=== PATIENT | male | born 1975 | race Caucasian/White ===

== ENCOUNTER 2016-06-02 19:05 | Emergency (ER) | payer OTHER ==
[2016-06-02 19:12] VITALS: BP 129/82; PULSE 68; RESP 16; TEMP 98.2
--- NOTE | 2016-06-02 19:54 | ED ---
General Adult HPI - General Chief complaint: Extremity Injury, Upper Stated complaint: shoulder pain Time Seen by Provider: 06/02/16 19:42 Source: patient, RN notes reviewed Mode of arrival: ambulatory Limitations: no limitations - History of Present Illness Initial comments: This is a 40-year-old male who presents with right shoulder pain that started around 2 PM today. Patient states he has some chronic posterior right shoulder pain and said he takes meloxicam at home. Patient states the pain he has today is more to the lateral aspect of the right shoulder. Patient states this started after he lifted up a heavy bag with his right upper extremity fully extended. Patient states he's been having pain with flexion and abduction of the right upper extremity ever since. Patient denies any numbness/tingling/ weakness or radicular pain of the right upper extremity. Patient denies any neck pain. Patient denies any fall or trauma to the right shoulder. Patient denies any recent fever, chills, shortness breath, chest pain, abdominal pain, nausea/vomiting/diarrhea, back pain, hematuria, headache, or visual changes, or any other complaints. - Related Data Allergies Allergy/AdvReac Type Severity Reaction Status Date / Time No Known Allergies Allergy Verified 06/02/16 19:12 Review of Systems ROS Statement: Those systems with pertinent positive or pertinent negative responses have been documented in the HPI. ROS Other: All systems not noted in ROS Statement are negative. Past Medical History Past Medical History: No Reported History History of Any Multi-Drug Resistant Organisms: None Reported Past Surgical History: Hernia Repair, Orthopedic Surgery Additional Past Surgical History / Comment(s): right ankle Past Psychological History: PTSD Smoking Status: Never smoker Past Alcohol Use History: None Reported Past Drug Use History: None Reported General Exam - General Exam Comments Initial Comments: General: The patient is awake and alert, in no distress, and does not appear acutely ill. Neck: The neck is supple, there is no tenderness or JVD. Cardiovascular: There is a regular rate and rhythm. No murmur, rub or gallop is appreciated. Respiratory: Lungs are clear to auscultation, respirations are non-labored, breath sounds are equal. No wheezes, stridor, rales, or rhonchi. Musculoskeletal: There is tenderness to palpation over the lateral aspect of the right shoulder. Pain is exacerbated with empty can test and with lift off test. Patient has limited range of motion with forward flexion and abduction, patient's range of motion improves with passive range of motion. Patient has strength 5/5 and sensation intact. Radial pulses are 2+ bilaterally. 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 Neurological: A&O x 3. CN II-XII intact, There are no obvious motor or sensory deficits. Coordination appears grossly intact. Speech is normal. Skin: Skin is warm and dry and no rashes or lesions are noted. Psychiatric: Normal mood and affect. Limitations: no limitations Course Vital Signs 06/02/16 19:09 Temperature 98.2 F Pulse Rate 68 Respiratory 16 Rate Blood Pressure 129/82 O2 Sat by Pulse 97 Oximetry Medical Decision Making - Medical Decision Making This is a 40-year-old male presents with right shoulder pain that started at 2 PM today. On physical exam patient has no neurologic deficits. There is tenderness to palpation over the lateral aspect of the right shoulder. Pain is exacerbated with empty can test and with lift off test, but patient has full strength. Patient has limited range of motion with forward flexion and abduction, patient's range of motion improves with passive range of motion. Patient has strength 5/5 and sensation intact. Radial pulses are 2+ bilaterally. An x-ray of the right shoulder was done and reviewed showing: There is no acute fracture or dislocation. Reported the Dr. Esquivel. I discussed the results with patient. I discussed range of motion exercises periodically throughout the day. Discussed continuation of the patient's meloxicam and Tylenol. I discussed rest and ice to the right upper extremity. I discussed the patient should avoid lifting anything heavy until pain is improved. I discussed return parameters.Discussed that patient should follow up with PCP in one to 2 days or return to the [facility] for any worsening symptoms or for any further concerns. Patient and were receptive to this plan and patient will be discharged home. Disposition Clinical Impression: Sprain of shoulder, right Disposition: HOME SELF-CARE Condition: Good Instructions: Shoulder Sprain (ED) Additional Instructions: Please rest, ice and use Tylenol and your meloxicam for pain. Please do not lift anything that causes pain in the shoulder. Please perform range of motion exercises to the shoulder periodically throughout the day. Please follow-up with her primary care physician in one to 2 days or return to the [facility] for any worsening symptoms or for any further concerns. Referrals: Conor Garza DO [Primary Care Provider] - 1-2 days Time of Disposition: 20:18
--- NOTE | 2016-06-02 20:17 | XR ---
EXAMINATION TYPE: XR shoulder complete RT DATE OF EXAM: 06/02/2016 8:03 PM CLINICAL HISTORY: pain COMPARISON: NONE TECHNIQUE: Frontal and lateral images of the right humerus are obtained. FINDINGS: There is no acute fracture/dislocation evident. The joint spaces appear within normal limi ts. The overlying soft tissue appears unremarkable. IMPRESSION: There is no acute fracture or dislocation.ICD 10 NO FRACTURE, INITIAL EVALUATION
== END 2016-06-02 20:24 | disposition home or self-care (01) ==
LOC: EC 19:05
DX: S43.401A Unspecified sprain of right shoulder joint, initial encounter (principal); X50.0XXA Overexertion from strenuous movement or load, initial encounter
CPT/HCPCS: 99283

== ENCOUNTER 2016-07-30 00:08 | Emergency (ER) | payer OTHER ==
[2016-07-30 00:17] VITALS: TEMP 97.4
[2016-07-30] MEDS ORDERED: SODIUM CHLORIDE 0.9% 1,000 ML IV ONE (00:53)
--- NOTE | 2016-07-30 00:55 | ED ---
General Adult HPI - General Chief complaint: Abdominal Pain Stated complaint: back pain Time Seen by Provider: 07/30/16 00:19 Source: patient, RN notes reviewed Mode of arrival: ambulatory Limitations: no limitations - History of Present Illness Initial comments: Patient is a 40-year-old male to the emergency room for evaluation of flank pain. Patient states he began having right-sided flank pain that radiated to the left side of his flank area around 10 PM this evening. Patient states he urinated the pain worsened. Patient states he took a shower and took Tylenol and the pain appeared to improve slightly. Patient states he still having continuing pain and can't get comfortable. Patient does state he has a history of kidney stones. Patient states this does feel similar. Patient denies any pain or burning during urination. Patient denies any current nausea or vomiting. Patient denies fevers or chills. Patient denies headache or dizziness. Patient denies chest pain or shortness of breath. Patient does state he had abdominal pain earlier this evening when he was expressing the flank pain but it has subsided since he has been here. Patient states she has a history of inguinal hernia repair. Patient denies any other history of abdominal surgeries. - Related Data Home Medications Medication Instructions Recorded Confirmed Naproxen [Naprosyn] 500 mg PO Q12HR 07/30/16 07/30/16 Previous Rx's Medication Instructions Recorded traMADol HCl [Ultram] 50 mg PO Q4H PRN #15 tab 07/30/16 Allergies Allergy/AdvReac Type Severity Reaction Status Date / Time No Known Allergies Allergy Verified 07/30/16 00:16 Review of Systems ROS Statement: Those systems with pertinent positive or pertinent negative responses have been documented in the HPI. ROS Other: All systems not noted in ROS Statement are negative. Past Medical History Past Medical History: No Reported History Additional Past Medical History / Comment(s): kidney stones History of Any Multi-Drug Resistant Organisms: None Reported Past Surgical History: Hernia Repair, Orthopedic Surgery Additional Past Surgical History / Comment(s): right ankle Past Psychological History: PTSD Smoking Status: Never smoker Past Alcohol Use History: None Reported Past Drug Use History: None Reported General Exam - General Exam Comments Initial Comments: Sitting in exam room, no acute distress. Limitations: no limitations General appearance: alert, in no apparent distress Head exam: Present: atraumatic, normocephalic, normal inspection Eye exam: Present: normal appearance ENT exam: Present: normal exam Neck exam: Present: normal inspection Respiratory exam: Present: normal lung sounds bilaterally. Absent: respiratory distress Cardiovascular Exam: Present: regular rate, normal rhythm, normal heart sounds GI/Abdominal exam: Present: soft, normal bowel sounds. Absent: distended, tenderness, guarding, rebound, rigid Extremities exam: Present: normal inspection Back exam: Present: CVA tenderness (R), CVA tenderness (L) Neurological exam: Present: alert, oriented X3, CN II-XII intact, normal gait Psychiatric exam: Present: normal affect, normal mood Skin exam: Present: warm, dry, intact, normal color. Absent: rash Course Vital Signs 07/30/16 07/30/16 00:14 03:21 Temperature 97.4 F L Pulse Rate 89 65 Respiratory 18 16 Rate Blood Pressure 109/82 116/55 O2 Sat by Pulse 100 98 Oximetry Medical Decision Making - Medical Decision Making Patient is a 40-year-old male presents to the emergency room for evaluation of flank pain. CT evidence for right renal calculus. Patient declined any pain medications while he was here. Advised patient to follow-up with his primary care provider. Patient sent home with pain medications as needed if passing a stone. Patient states he understands everything else discussed with him. Return parameters discussed. Case discussed Dr. Raymond. - Lab Data Result diagrams: 07/30/16 01:15 07/30/16 01:15 Lab Results 07/30/16 07/30/16 07/30/16 Range/Units 01:15 01:15 01:15 WBC 12.8 H (3.8-10.6) k/uL RBC 5.38 (4.30-5.90) m/uL Hgb 16.4 (13.0-17.5) gm/dL Hct 49.2 (39.0-53.0) % MCV 91.4 (80.0-100.0) fL MCH 30.5 (25.0-35.0) pg MCHC 33.4 (31.0-37.0) g/dL RDW 13.1 (11.5-15.5) % Plt Count 389 (150-450) k/uL Neutrophils % 69 % Lymphocytes % 23 % Monocytes % 4 % Eosinophils % 2 % Basophils % 1 % Neutrophils # 8.9 H (1.3-7.7) k/uL Lymphocytes # 2.9 (1.0-4.8) k/uL Monocytes # 0.6 (0-1.0) k/uL Eosinophils # 0.3 (0-0.7) k/uL Basophils # 0.1 (0-0.2) k/uL Sodium 142 (137-145) mmol/L Potassium 4.1 (3.5-5.1) mmol/L Chloride 106 (98-107) mmol/L Carbon Dioxide 24 (22-30) mmol/L Anion Gap 12 mmol/L BUN 11 (9-20) mg/dL Creatinine 0.90 (0.66-1.25) mg/dL Est GFR (MDRD) Af Amer >60 (>60 ml/min/1.73 sqM) Est GFR (MDRD) Non-Af >60 (>60 ml/min/1.73 sqM) Glucose 118 H (74-99) mg/dL Calcium 9.5 (8.4-10.2) mg/dL Total Bilirubin 0.5 (0.2-1.3) mg/dL AST 25 (17-59) U/L ALT 32 (21-72) U/L Alkaline Phosphatase 75 (38-126) U/L Total Protein 7.7 (6.3-8.2) g/dL Albumin 4.5 (3.5-5.0) g/dL Amylase 67 (30-110) U/L Lipase 140 (23-300) U/L Urine Color Yellow Urine Appearance Clear (Clear) Urine pH 5.5 (5.0-8.0) Ur Specific [place] 1.022 (1.001-1.035) Urine Protein Trace H (Negative) Urine Glucose (UA) Negative (Negative) Urine Ketones Negative (Negative) Urine Blood Negative (Negative) Urine Nitrite Negative (Negative) Urine Bilirubin Negative (Negative) Urine Urobilinogen <2.0 (<2.0) mg/dL Ur Leukocyte Esterase Negative (Negative) - Radiology Data Radiology results: report reviewed, image reviewed Disposition Clinical Impression: Renal calculus, right, Flank pain Disposition: HOME SELF-CARE Condition: Good Instructions: Kidney Stones (ED) Additional Instructions: Drink plenty of water. Take Tylenol or Motrin for pain. Take Ultram as needed for severe pain. Please follow up with primary care provider in 1-2 days. If any new symptom arises or symptoms worsen, return to ER as soon as possible. Prescriptions: traMADol HCl [Ultram] 50 mg PO Q4H PRN #15 tab PRN Reason: Pain Referrals: Conor Garza DO [Primary Care Provider] - 1-2 days Time of Disposition: 03:13
[2016-07-30 01:24] LABS: Appearance,Urine Clear (Clear); Basophils # (A) 0.1 k/uL (0-0.2); Basophils % (A) 1 %; Bilirubin,Urine Negative (Negative); CH 31.4; CHCM 34.6; Eosinophils # (A) 0.3 k/uL (0-0.7); Eosinophils % (A) 2 %; Glucose,Urine (UA) Negative (Negative); HCT 49.2 % (39.0-53.0); HDW 2.82; HGB 16.4 gm/dL (13.0-17.5); Ketones,Urine Negative (Negative); Leukocyte Esterase,Urine Negative (Negative); Luc # (Auto) 0.13; Luc % (Auto) 1; Lymphocytes # (A) 2.9 k/uL (1.0-4.8); Lymphocytes % (A) 23 %; MCH 30.5 pg (25.0-35.0); MCHC 33.4 g/dL (31.0-37.0); MCV 91.4 fL (80.0-100.0); Mean Platelet Volume 6.6; Monocytes # (A) 0.6 k/uL (0-1.0); Monocytes % (A) 4 %; Neutrophils # (A) 8.9 k/uL (1.3-7.7); Neutrophils % (A) 69 %; Nitrite,Urine Negative (Negative); PH, Urine 5.5 (5.0-8.0); Protein,Urine Trace (Negative); RBC 5.38 m/uL (4.30-5.90); RDW 13.1 % (11.5-15.5); Specific Gravity,Urine 1.022 (1.001-1.035); UA Billing (MACRO vs. MICRO) CHEM; Urobilinogen,Urine <2.0 mg/dL (<2.0); WBC 12.8 k/uL (3.8-10.6); WBC (Perox) 12.06
[2016-07-30 01:33] LABS: Amylase 67 U/L (30-110); Anion Gap 12 mmol/L; Calcium 9.5 mg/dL (8.4-10.2); Carbon Dioxide 24 mmol/L (22-30); Chloride 106 mmol/L (98-107); Glucose 118 mg/dL (74-99); Non-African American GFR(MDRD) >60 (>60 ml/min/1.73 sqM); Sodium 142 mmol/L (137-145); Total Bilirubin 0.5 mg/dL (0.2-1.3); Total Protein 7.7 g/dL (6.3-8.2)
[2016-07-30 01:34] LABS: ALT 32 U/L (21-72); AST 25 U/L (17-59); Alkaline Phosphatase 75 U/L (38-126); Blood Urea Nitrogen 11 mg/dL (9-20); Potassium 4.1 mmol/L (3.5-5.1)
[2016-07-30] MEDS: RX INFO: IV CONTRAST WAS GIVEN 1 EACH MISC MISCELLANE PRN ×2 (02:01→03:08)
--- NOTE | 2016-07-30 02:55 | CT ---
EXAM: CT Abdomen and Pelvis With Intravenous Contrast CLINICAL HISTORY: Reason: Pain Hx. of inguinal hernia repair. Pt. c/o right flank pain TECHNIQUE: Axial computed tomography images of the abdomen and pelvis with intravenous contrast. CTDI is 17 mGy and DLP is 1500 mGy-cm This CT exam was performed using one or more of the following dose reduction techniques: automated exposure control, adjustment of the mA and/or kV according to patient size, and/or use of iterative reconstruction technique. COMPARISON: No relevant prior studies available. FINDINGS: Lower thorax: No acute findings. ABDOMEN: Liver: Unremarkable. No mass. Gallbladder and bile ducts: Unremarkable. No calcified stones. No ductal dilation. Pancreas: Unremarkable. No mass. No ductal dilation. Spleen: Unremarkable. No splenomegaly. Adrenals: Unremarkable. No mass. Kidneys and ureters: Small nonobstructing right renal calculi. No hydronephrosis or obstructing calculus. Stomach and bowel: Unremarkable. No obstruction. No mucosal thickening. Appendix: Normal appendix. PELVIS: Bladder: Unremarkable. No mass. Reproductive: Unremarkable as visualized. ABDOMEN and PELVIS: Intraperitoneal space: Unremarkable. No free air. No significant fluid collection. Bones/joints: No acute fracture. No dislocation. Soft tissues: Small fat-containing right inguinal hernia with appearance. Likely status post repair. Vasculature: Unremarkable. No abdominal aortic aneurysm. Lymph nodes: Unremarkable. No enlarged lymph nodes. IMPRESSION: 1. No acute findings. 2. Normal appendix. 3. Small nonobstructing right renal calculi. No hydronephrosis or obstructing calculus
[2016-07-30 03:22] VITALS: BP 116/55; PULSE 65; RESP 16
== END 2016-07-30 03:23 | disposition home or self-care (01) ==
LOC: EC 00:08
DX: N20.0 Calculus of kidney (principal); Z79.1 Long term (current) use of non-steroidal anti-inflammatories (NSAID); Z98.890 Other specified postprocedural states
CPT/HCPCS: 36415; 80053; 82150; 83690; 85025; 81003; 74177; 99284; 96360; Q9967

== ENCOUNTER 2016-08-22 17:41 | Emergency (ER) | payer OTHER ==
[2016-08-22] MEDS ORDERED: SODIUM CHLORIDE 0.9% 1,000 ML IV STA (17:54)
[2016-08-22] MEDS ORDERED: ONDANSETRON 4 MG/2 ML VIAL IVP STA (17:54)
[2016-08-22] MEDS ORDERED: HYDROmorphone 1 MG/ML 1 ML SYRINGE IVP STA (17:54)
[2016-08-22] MEDS ORDERED: KETOROLAC 30 MG/ML 1 ML VIAL IVP STA (17:54)
--- NOTE | 2016-08-22 17:58 | ED ---
Back Pain HPI - General Chief Complaint: Back Pain/Injury Stated Complaint: lower back pain Time Seen by Provider: 08/22/16 17:49 Source: patient, RN notes reviewed Limitations: no limitations - History of Present Illness Initial Comments: 40-year-old male presents to the emergency room chief complaint of right flank pain. Patient states it radiates into the right groin. Patient does admit to a history of kidney stones. Patient states this is more intense than his typical kidney stones. Patient states she's had no fever chills with this. Patient denies any cough cold. Patient states he was concerned due to his symptoms. He should be evaluated. Patient denies any recent fever, chills, shortness of breath, chest pain, nausea vomiting, numbness or tingling, dysuria or hematuria, constipation or diarrhea, headaches or visual changes, or any other current symptoms. - Related Data Home Medications Medication Instructions Recorded Confirmed Naproxen [Naprosyn] 500 mg PO Q12HR 07/30/16 07/30/16 Previous Rx's Medication Instructions Recorded traMADol HCl [Ultram] 50 mg PO Q4H PRN #15 tab 07/30/16 Hydrocodone/Acetaminophen [[place] 1 each PO Q6HR PRN #20 tab 08/22/16 5-325] Ketorolac [Toradol] 10 mg PO Q6HR #20 tab 08/22/16 Ondansetron Odt [Zofran ODT] 4 mg PO Q8HR PRN #20 tab 08/22/16 Tamsulosin [Flomax] 0.4 mg PO DAILY #5 cap 08/22/16 Allergies Allergy/AdvReac Type Severity Reaction Status Date / Time No Known Allergies Allergy Verified 08/22/16 17:45 Review of Systems ROS Statement: Those systems with pertinent positive or pertinent negative responses have been documented in the HPI. ROS Other: All systems not noted in ROS Statement are negative. Past Medical History Past Medical History: No Reported History Additional Past Medical History / Comment(s): kidney stones History of Any Multi-Drug Resistant Organisms: None Reported Past Surgical History: Hernia Repair, Orthopedic Surgery Additional Past Surgical History / Comment(s): right ankle Past Psychological History: PTSD Smoking Status: Never smoker Past Alcohol Use History: None Reported Past Drug Use History: None Reported General Exam - General Exam Comments Initial Comments: General: The patient is awake and alert, in no distress, and does not appear acutely ill. Eye: Pupils are equal, round and reactive to light. Ears, nose, mouth and throat: There are moist mucous membranes. Neck: The neck is supple, there is no tenderness. Cardiovascular: There is a regular rate and rhythm. No murmur, rub or gallop is appreciated. Respiratory: Lungs are clear to auscultation, respirations are non-labored, breath sounds are equal. No wheezes, stridor, rales, or rhonchi. Gastrointestinal: Soft, non-distended, non-tender abdomen without masses or organomegaly noted. There is no rebound or guarding present. No CVA tenderness. Bowel sounds are unremarkable. Back: There is no tenderness to palpation in the midline. There is no obvious deformity. No rashes noted. Musculoskeletal: Normal ROM, no tenderness, There is no pedal edema. There is no calf tenderness or swelling. Sensation intact. Pulses equal bilaterally 2+. Neurological: CN II-XII intact, There are no obvious motor or sensory deficits. Coordination appears grossly intact. Speech is normal. Skin: Skin is warm and dry and no rashes or lesions are noted. Psychiatric: Cooperative, appropriate mood & affect, normal judgment. Limitations: no limitations Course Vital Signs 08/22/16 17:44 Temperature 98.5 F Pulse Rate 94 Respiratory 20 Rate Blood Pressure 140/86 O2 Sat by Pulse 98 Oximetry Medical Decision Making - Medical Decision Making 40-year-old male male presents with leg.. This and there is suspicion for a possible ureteral calculi. At this time patient's CAT scan is read as showing obstructing ureteral calculi. This time we discussed with the patient medically follow-up with the family's questions. He stated he understood and plan. They will be discharged home. - Lab Data Result diagrams: 08/22/16 18:28 08/22/16 18:28 Lab Results 08/22/16 08/22/16 08/22/16 Range/Units 18:28 18:28 18:28 WBC 10.2 (3.8-10.6) k/uL RBC 4.91 (4.30-5.90) m/uL Hgb 15.1 (13.0-17.5) gm/dL Hct 44.5 (39.0-53.0) % MCV 90.7 (80.0-100.0) fL MCH 30.6 (25.0-35.0) pg MCHC 33.8 (31.0-37.0) g/dL RDW 13.4 (11.5-15.5) % Plt Count 319 (150-450) k/uL Neutrophils % 66 % Lymphocytes % 25 % Monocytes % 5 % Eosinophils % 1 % Basophils % 1 % Neutrophils # 6.7 (1.3-7.7) k/uL Lymphocytes # 2.5 (1.0-4.8) k/uL Monocytes # 0.6 (0-1.0) k/uL Eosinophils # 0.2 (0-0.7) k/uL Basophils # 0.1 (0-0.2) k/uL Sodium 140 (137-145) mmol/L Potassium 4.7 (3.5-5.1) mmol/L Chloride 108 H (98-107) mmol/L Carbon Dioxide 22 (22-30) mmol/L Anion Gap 10 mmol/L BUN 15 (9-20) mg/dL Creatinine 0.96 (0.66-1.25) mg/dL Est GFR (MDRD) Af Amer >60 (>60 ml/min/1.73 sqM) Est GFR (MDRD) Non-Af >60 (>60 ml/min/1.73 sqM) Glucose 94 (74-99) mg/dL Calcium 9.4 (8.4-10.2) mg/dL Total Bilirubin 0.6 (0.2-1.3) mg/dL AST 32 (17-59) U/L ALT 39 (21-72) U/L Alkaline Phosphatase 63 (38-126) U/L Total Protein 7.4 (6.3-8.2) g/dL Albumin 4.4 (3.5-5.0) g/dL Urine Color Yellow Urine Appearance Clear (Clear) Urine pH 5.5 (5.0-8.0) Ur Specific [place] 1.023 (1.001-1.035) Urine Protein Negative (Negative) Urine Glucose (UA) Negative (Negative) Urine Ketones Negative (Negative) Urine Blood Moderate H (Negative) Urine Nitrite Negative (Negative) Urine Bilirubin Negative (Negative) Urine Urobilinogen <2.0 (<2.0) mg/dL Ur Leukocyte Esterase Negative (Negative) Urine RBC 28 H (0-5) /hpf Urine WBC 1 (0-5) /hpf Ur Squamous Epith Cells <1 (0-4) /hpf Urine Mucus Rare H (None) /hpf - Radiology Data Radiology results: report reviewed, image reviewed Disposition Clinical Impression: Renal calculus, right, Right ureteral calculus Disposition: HOME SELF-CARE Condition: Stable Instructions: Kidney Stones (ED) Additional Instructions: Please use medication as discussed. Please follow up with family doctor if symptoms have not improved over the next two days. Please return to the emergency room if your symptoms increase or worsen or for any other concerns. Prescriptions: Hydrocodone/Acetaminophen [[place] 5-325] 1 each PO Q6HR PRN #20 tab PRN Reason: Pain Ketorolac [Toradol] 10 mg PO Q6HR #20 tab Ondansetron Odt [Zofran ODT] 4 mg PO Q8HR PRN #20 tab PRN Reason: Nausea Tamsulosin [Flomax] 0.4 mg PO DAILY #5 cap Referrals: Conor Garza DO [Primary Care Provider] - 1-2 days Virgil Laboy MD [STAFF PHYSICIAN] - 1-2 days Time of Disposition: 19:53
[2016-08-22 18:43] LABS: Basophils # (A) 0.1 k/uL (0-0.2); Basophils % (A) 1 %; CH 30.9; CHCM 34.3; Eosinophils # (A) 0.2 k/uL (0-0.7); Eosinophils % (A) 1 %; HCT 44.5 % (39.0-53.0); HDW 2.74; HGB 15.1 gm/dL (13.0-17.5); Luc # (Auto) 0.15; Luc % (Auto) 2; Lymphocytes # (A) 2.5 k/uL (1.0-4.8); Lymphocytes % (A) 25 %; MCH 30.6 pg (25.0-35.0); MCHC 33.8 g/dL (31.0-37.0); MCV 90.7 fL (80.0-100.0); Mean Platelet Volume 6.9; Monocytes # (A) 0.6 k/uL (0-1.0); Monocytes % (A) 5 %; Neutrophils # (A) 6.7 k/uL (1.3-7.7); Neutrophils % (A) 66 %; RBC 4.91 m/uL (4.30-5.90); RDW 13.4 % (11.5-15.5); WBC 10.2 k/uL (3.8-10.6); WBC (Perox) 9.82
[2016-08-22 18:57] LABS: Appearance,Urine Clear (Clear); Bilirubin,Urine Negative (Negative); Glucose,Urine (UA) Negative (Negative); Ketones,Urine Negative (Negative); Leukocyte Esterase,Urine Negative (Negative); Mucus,Urine Rare /hpf; Nitrite,Urine Negative (Negative); PH, Urine 5.5 (5.0-8.0); Particle Count 1662; Protein,Urine Negative (Negative); RBC,Urine 28 /hpf (0-5); Specific Gravity,Urine 1.023 (1.001-1.035); Squamous Epithelial Cell,Urine <1 /hpf (0-4); UA Billing (MACRO vs. MICRO) MICRO; Urobilinogen,Urine <2.0 mg/dL (<2.0); WBC,Urine 1 /hpf (0-5)
[2016-08-22 18:58] LABS: ALT 39 U/L (21-72); AST 32 U/L (17-59); Alkaline Phosphatase 63 U/L (38-126); Anion Gap 10 mmol/L; Blood Urea Nitrogen 15 mg/dL (9-20); Calcium 9.4 mg/dL (8.4-10.2); Carbon Dioxide 22 mmol/L (22-30); Chloride 108 mmol/L (98-107); Glucose 94 mg/dL (74-99); Non-African American GFR(MDRD) >60 (>60 ml/min/1.73 sqM); Potassium 4.7 mmol/L (3.5-5.1); Sodium 140 mmol/L (137-145); Total Bilirubin 0.6 mg/dL (0.2-1.3); Total Protein 7.4 g/dL (6.3-8.2)
--- NOTE | 2016-08-22 19:44 | CT ---
EXAMINATION TYPE: CT abdomen pelvis wo con DATE OF EXAM: 08/22/2016 7:27 PM COMPARISON: 07/30/2016 HISTORY: Right sided flank and groin pain CT DLP: 981.7 mGycm Automated exposure control for dose reduction was used. TECHNIQUE: Helical acquisition of images was performed from the lung bases through the pelvis. FINDINGS: There is mild infiltrate and atelectasis at the left lung base. Liver spleen pancreas gallbladder appear normal. Bile ducts are not dilated. There is no adrenal mass . Kidneys have normal size. There are tiny calculi in the right kidney that measure up to 3 mm. There is mild right-sided hydronephrosis and hydroureter. There is a 3 mm calculus at the right ureteroves ical junction. Bladder distends smoothly. There is no pelvic mass. I see no intestinal wall thickenin g. There are no dilated loops. Appendix appears normal. There is no ascites. There is no retroperiton eal adenopathy. I see no bony destructive process. IMPRESSION: THERE IS A TINY CALCULUS OBSTRUCTING THE RIGHT UPPER COLLECTING SYSTEM AT THE URETEROVESICAL JUNCTION . MULTIPLE TINY RIGHT RENAL CALCULI. OBSTRUCTION APPEARS NEW COMPARED TO LAST EXAM. THERE IS MINIMAL ATELECTASIS AT THE LEFT LUNG BASE.
[2016-08-22 20:13] VITALS: BP 97/65; PULSE 65; RESP 18; TEMP 98.7
== END 2016-08-22 20:11 | disposition home or self-care (01) ==
LOC: EC 17:41
DX: N20.2 Calculus of kidney with calculus of ureter (principal); Z79.1 Long term (current) use of non-steroidal anti-inflammatories (NSAID)
CPT/HCPCS: 99284; 96374; 96375 ×2; 96361 ×2; 36415; 80053; 85025; 81001; 87086; 74176; J2405; J1885; J1170

== ENCOUNTER 2017-07-23 02:15 | Emergency (ER) | payer OTHER ==
[2017-07-23] MEDS ORDERED: ONDANSETRON 4 MG/2 ML VIAL IVP STA (02:31)
[2017-07-23] MEDS ORDERED: SODIUM CHLORIDE 0.9% 1,000 ML IV STA (02:31)
[2017-07-23] MEDS ORDERED: SODIUM CHLORIDE 0.9% 500 ML IV STA (02:31)
[2017-07-23] MEDS ORDERED: KETOROLAC 30 MG/ML 1 ML VIAL IVP STA (02:31)
--- NOTE | 2017-07-23 02:34 | ED ---
General Adult HPI - General Chief complaint: Urogenital Stated complaint: back pain and testicle pain Time Seen by Provider: 07/23/17 02:27 Source: patient Mode of arrival: ambulatory Limitations: no limitations - History of Present Illness Initial comments: 41-year-old male patient presents to the emergency department today with complaints of right flank pain that radiates down to his right lower abdomen and right groin. Patient states this started approximate 1 AM this morning. States that the pain is intense, these eczematous stabbing him in the back. States it feels like when he has had kidney stones in the past. Patient states he is nauseated with this but has not vomited. He denies any fevers or chills. Denies any constipation or diarrhea. Denies any hematuria, dysuria, urinary frequency, urinary urgency. States when he urinates it does change location of the pain. Patient denies any recent rash, shortness breath, chest pain, numbness , tingling, dizziness, weakness, headache, visual changes, or any other complaints. - Related Data Home Medications Medication Instructions Recorded Confirmed Naproxen [Naprosyn] 500 mg PO Q12HR 07/30/16 07/30/16 Previous Rx's Medication Instructions Recorded traMADol HCl [Ultram] 50 mg PO Q4H PRN #15 tab 07/30/16 Hydrocodone/Acetaminophen [[place] 1 each PO Q6HR PRN #20 tab 08/22/16 5-325] Ketorolac [Toradol] 10 mg PO Q6HR #20 tab 08/22/16 Ondansetron Odt [Zofran ODT] 4 mg PO Q8HR PRN #20 tab 08/22/16 Tamsulosin [Flomax] 0.4 mg PO DAILY #5 cap 08/22/16 Hydrocodone/Acetaminophen [[place] 1 tab PO Q6HR PRN #12 tab 07/23/17 5-325] Ibuprofen [Motrin] 600 mg PO Q8HR PRN #30 tab 07/23/17 Ondansetron [Zofran ODT] 4 mg PO Q8HR PRN #10 tab 07/23/17 Tamsulosin HCl [Flomax] 0.4 mg PO DAILY #7 cap 07/23/17 Allergies Allergy/AdvReac Type Severity Reaction Status Date / Time No Known Allergies Allergy Verified 07/23/17 02:20 Review of Systems ROS Statement: Those systems with pertinent positive or pertinent negative responses have been documented in the HPI. ROS Other: All systems not noted in ROS Statement are negative. Past Medical History Past Medical History: No Reported History Additional Past Medical History / Comment(s): kidney stones History of Any Multi-Drug Resistant Organisms: None Reported Past Surgical History: Hernia Repair, Orthopedic Surgery Additional Past Surgical History / Comment(s): right ankle Past Psychological History: PTSD Smoking Status: Never smoker Past Alcohol Use History: None Reported Past Drug Use History: None Reported General Exam Limitations: no limitations General appearance: alert, in distress (Mild distress related to pain), other ( This is a well-developed, well-nourished adult male patient in mild distress related to pain. Vital signs upon presentation are temperature 97.4F, pulse 70 , respirations 20, blood pressure 135/77, pulse ox 97% on room air.) Eye exam: Present: normal appearance, PERRL, EOMI. Absent: scleral icterus, conjunctival injection, periorbital swelling ENT exam: Present: normal exam, normal oropharynx, mucous membranes moist Respiratory exam: Present: normal lung sounds bilaterally. Absent: respiratory distress, wheezes, rales, rhonchi, stridor Cardiovascular Exam: Present: regular rate, normal rhythm, normal heart sounds. Absent: systolic murmur, diastolic murmur, rubs, gallop, clicks GI/Abdominal exam: Present: soft, tenderness (Right lower quadrant, right groin) , normal bowel sounds. Absent: distended, guarding, rebound, rigid exam: Present: normal inspection, other (Normal cremasteric reflex). Absent : testicular tenderness, scrotal swelling Back exam: Present: normal inspection, CVA tenderness (R). Absent: CVA tenderness (L) Neurological exam: Present: alert, oriented X3, CN II-XII intact Psychiatric exam: Present: normal affect, normal mood Skin exam: Present: warm, dry, intact, normal color. Absent: rash Course Vital Signs 07/23/17 02:18 Temperature 97.4 F L Pulse Rate 70 Respiratory 20 Rate Blood Pressure 135/77 O2 Sat by Pulse 97 Oximetry Medical Decision Making - Medical Decision Making 41-year-old male patient presented to the emergency department today for complaints of right flank pain that radiates to the right groin. Patient did have some mild right lower quadrant abdominal tenderness. Labs reviewed and showed an elevated white blood cell count at 11.9. Urine showed small amount of blood and rare mucous. Testicular exam is normal. Normal cremasteric reflex. KUB x-ray of the abdomen showed no acute findings. Patient has had kidney stone in the past states this feels similar. Patient is feeling better after receiving IV pain medication and fluids in department. He'll be discharged home with follow-up for urology. Return parameters discussed in detail. He verbalizes understanding and agrees this plan. - Lab Data Result diagrams: 07/23/17 02:26 07/23/17 02:26 Lab Results 07/23/17 07/23/17 07/23/17 Range/Units 02:26 02:26 02:26 WBC 11.9 H (3.8-10.6) k/uL RBC 5.16 (4.30-5.90) m/uL Hgb 15.1 (13.0-17.5) gm/dL Hct 44.6 (39.0-53.0) % MCV 86.4 (80.0-100.0) fL MCH 29.2 (25.0-35.0) pg MCHC 33.8 (31.0-37.0) g/dL RDW 13.4 (11.5-15.5) % Plt Count 370 (150-450) k/uL Neutrophils % 49 % Lymphocytes % 40 % Monocytes % 5 % Eosinophils % 3 % Basophils % 1 % Neutrophils # 5.9 (1.3-7.7) k/uL Lymphocytes # 4.8 (1.0-4.8) k/uL Monocytes # 0.6 (0-1.0) k/uL Eosinophils # 0.3 (0-0.7) k/uL Basophils # 0.1 (0-0.2) k/uL Sodium 142 (137-145) mmol/L Potassium 3.6 (3.5-5.1) mmol/L Chloride 104 (98-107) mmol/L Carbon Dioxide 22 (22-30) mmol/L Anion Gap 16 mmol/L BUN 14 (9-20) mg/dL Creatinine 0.90 (0.66-1.25) mg/dL Est GFR (CKD-EPI)AfAm >90 (>60 ml/min/1.73 sqM) Est GFR (CKD-EPI)NonAf >90 (>60 ml/min/1.73 sqM) Glucose 123 H (74-99) mg/dL Calcium 9.3 (8.4-10.2) mg/dL Total Bilirubin 0.4 (0.2-1.3) mg/dL AST 19 (17-59) U/L ALT 20 L (21-72) U/L Alkaline Phosphatase 81 (38-126) U/L Total Protein 6.7 (6.3-8.2) g/dL Albumin 4.2 (3.5-5.0) g/dL Amylase 59 (30-110) U/L Lipase 125 (23-300) U/L Urine Color Yellow Urine Appearance Clear (Clear) Urine pH 5.0 (5.0-8.0) Ur Specific [place] 1.017 (1.001-1.035) Urine Protein Negative (Negative) Urine Glucose (UA) Negative (Negative) Urine Ketones Negative (Negative) Urine Blood Small H (Negative) Urine Nitrite Negative (Negative) Urine Bilirubin Negative (Negative) Urine Urobilinogen <2.0 (<2.0) mg/dL Ur Leukocyte Esterase Negative (Negative) Urine RBC 4 (0-5) /hpf Urine WBC 1 (0-5) /hpf Urine Mucus Rare H (None) /hpf Urine Sperm Rare (None) /hpf - Radiology Data Radiology results: report reviewed, image reviewed KUB x-ray of the abdomen was obtained. Intraperitoneal patient is no free air. Gastrointestinal tract is unremarkable no dilation. Bones and joints are unremarkable. Impression by Dr. Lindsey shows nonspecific nonobstructive bowel gas pattern. Disposition Clinical Impression: Kidney stone on right side Disposition: HOME SELF-CARE Condition: Good Instructions: Kidney Stones (ED), How to Strain Your Urine (ED) Additional Instructions: Increase fluids. Take medications as instructed. Follow up with urology for recheck as soon as possible. Return here immediately for any new, worsening, or concerning symptoms. Prescriptions: Hydrocodone/Acetaminophen [[place] 5-325] 1 tab PO Q6HR PRN #12 tab PRN Reason: Pain Ibuprofen [Motrin] 600 mg PO Q8HR PRN #30 tab PRN Reason: Pain Ondansetron [Zofran ODT] 4 mg PO Q8HR PRN #10 tab PRN Reason: Nausea Tamsulosin HCl [Flomax] 0.4 mg PO DAILY #7 cap Is patient prescribed a controlled substance at d/c from ED?: Yes When asked, does pt state using other controlled substances?: No Referrals: Nonstaff,Physician [Primary Care Provider] - 1-2 days Raymundo Pritchett MD [STAFF PHYSICIAN] - 1-2 days Time of Disposition: 03:48
[2017-07-23 03:15] LABS: Appearance,Urine Clear (Clear); Bilirubin,Urine Negative (Negative); Blood,Urine Small (Negative); Color,Urine Yellow; Glucose,Urine (UA) Negative (Negative); Ketones,Urine Negative (Negative); Leukocyte Esterase,Urine Negative (Negative); Mucus,Urine Rare /hpf; Nitrite,Urine Negative (Negative); Protein,Urine Negative (Negative); RBC,Urine 4 /hpf (0-5); Specific Gravity,Urine 1.017 (1.001-1.035); Sperm,Urine Rare /hpf; Urobilinogen,Urine <2.0 mg/dL (<2.0); WBC,Urine 1 /hpf (0-5)
[2017-07-23 03:22] LABS: ALT 20 U/L (21-72); AST 19 U/L (17-59); Albumin 4.2 g/dL (3.5-5.0); Alkaline Phosphatase 81 U/L (38-126); Amylase 59 U/L (30-110); Anion Gap 16 mmol/L; Blood Urea Nitrogen 14 mg/dL (9-20); Calcium 9.3 mg/dL (8.4-10.2); Carbon Dioxide 22 mmol/L (22-30); Chloride 104 mmol/L (98-107); Glucose 123 mg/dL (74-99); Lipase 125 U/L (23-300); Potassium 3.6 mmol/L (3.5-5.1); Sodium 142 mmol/L (137-145); Total Bilirubin 0.4 mg/dL (0.2-1.3); Total Protein 6.7 g/dL (6.3-8.2)
--- NOTE | 2017-07-23 03:25 | XR ---
EXAM: XR Abdomen, 2 Views CLINICAL HISTORY: ITS.REASON XR Reason: abdominal pain TECHNIQUE: Frontal view of the abdomen/pelvis with upright view of the abdomen. COMPARISON: No relevant prior studies available. FINDINGS: Intraperitoneal space: No free air. Gastrointestinal tract: Unremarkable. No dilation. Bones/joints: Unremarkable. IMPRESSION: Nonspecific, nonobstructive bowel gas pattern.
[2017-07-23 03:30] LABS: Basophils # (A) 0.1 k/uL (0-0.2); Basophils % (A) 1 %; Eosinophils # (A) 0.3 k/uL (0-0.7); Eosinophils % (A) 3 %; HCT 44.6 % (39.0-53.0); HGB 15.1 gm/dL (13.0-17.5); Lymphocytes # (A) 4.8 k/uL (1.0-4.8); Lymphocytes % (A) 40 %; MCH 29.2 pg (25.0-35.0); MCHC 33.8 g/dL (31.0-37.0); MCV 86.4 fL (80.0-100.0); Mean Platelet Volume 7.2; Monocytes # (A) 0.6 k/uL (0-1.0); Monocytes % (A) 5 %; Neutrophils # (A) 5.9 k/uL (1.3-7.7); Neutrophils % (A) 49 %; Platelet Count 370 k/uL (150-450); RBC 5.16 m/uL (4.30-5.90); RDW 13.4 % (11.5-15.5); WBC 11.9 k/uL (3.8-10.6)
[2017-07-23] MEDS ORDERED: MORPHINE SULFATE 4 MG/ML SYRINGE IVP STA (03:47)
[2017-07-23] MEDS ORDERED: TAMSULOSIN 0.4 MG CAP.ER.24H PO STA (03:48)
[2017-07-23 04:05] VITALS: BP 141/86; PULSE 71; RESP 18; TEMP 98
== END 2017-07-23 04:05 | disposition home or self-care (01) ==
LOC: EC 02:15
DX: N20.0 Calculus of kidney (principal); D72.829 Elevated white blood cell count, unspecified; Z79.1 Long term (current) use of non-steroidal anti-inflammatories (NSAID)
CPT/HCPCS: 36415; 80053; 82150; 83690; 85025; 81001; 74018; 99284; 96374; 96375 ×2; 96361; J2270; J2405; J1885

== ENCOUNTER → 2018-03-08 | Outpatient (CLI) | payer OTHER ==
--- NOTE | 2018-03-08 19:10 | US ---
EXAMINATION TYPE: US venous doppler duplex LE RT DATE OF EXAM: 03/08/2018 6:42 PM COMPARISON: NONE CLINICAL HISTORY: DEEP VEIN THROMBOSIS I82.409. post op right leg pain SIDE PERFORMED: RT TECHNIQUE: The lower extremity deep venous system is examined utilizing real time linear array sonog wally with graded compression, doppler sonography and color-flow sonography. VESSELS IMAGED: External Iliac Vein (EIV) Common Femoral Vein Deep Femoral Vein Greater Saphenous Vein * Femoral Vein Popliteal Vein Small Saphenous Vein * Proximal Calf Veins (* superficial vessels) FINDINGS: Grayscale, color doppler, spectral doppler imaging performed of the deep veins of the lower extremities. There is normal flow, compressibility, vascular waveforms. IMPRESSION: NEGATIVE FOR DVT, RIGHT LOWER EXTREMITY.
== END | disposition home or self-care (01) ==
LOC: RADUSMAIN 18:05
PROVIDERS: ATTEND Podiatrist Foot & Ankle Surgery
DX: I82.401 Acute embolism and thrombosis of unspecified deep veins of right lower extremity (principal)

== ENCOUNTER 2018-03-09 16:55 | Emergency (ER) | payer OTHER ==
[2018-03-09 17:09] VITALS: BP 142/90; PULSE 81; RESP 16; TEMP 99.3
--- NOTE | 2018-03-09 17:30 | ED ---
General Adult HPI - General Chief complaint: Upper Respiratory Infection Stated complaint: sorethroat, cough, headache Time Seen by Provider: 03/09/18 17:15 Source: patient, RN notes reviewed Mode of arrival: ambulatory Limitations: no limitations - History of Present Illness Initial comments: Patient 42-year-old male presenting to the emergency room today with a chief complaint of cough congestion over the last 4 days. He does admit to increased sinus pressure. Admits to sore throat. States children at home sick. Patient states chills. Denies any recorded temperatures. He denies any other complaints. Does admit to sputum production. Patient denies any recent shortness of breath, chest pain, back pain, abdominal pain, dysuria or hematuria , constipation or diarrhea, headaches or visual changes, or any other complaints. - Related Data Home Medications Medication Instructions Recorded Confirmed Naproxen [Naprosyn] 500 mg PO Q12HR 07/30/16 07/30/16 Previous Rx's Medication Instructions Recorded traMADol HCl [Ultram] 50 mg PO Q4H PRN #15 tab 07/30/16 Hydrocodone/Acetaminophen [[place] 1 each PO Q6HR PRN #20 tab 08/22/16 5-325] Ketorolac [Toradol] 10 mg PO Q6HR #20 tab 08/22/16 Ondansetron Odt [Zofran ODT] 4 mg PO Q8HR PRN #20 tab 08/22/16 Tamsulosin [Flomax] 0.4 mg PO DAILY #5 cap 08/22/16 Hydrocodone/Acetaminophen [[place] 1 tab PO Q6HR PRN #12 tab 07/23/17 5-325] Ibuprofen [Motrin] 600 mg PO Q8HR PRN #30 tab 07/23/17 Ondansetron [Zofran ODT] 4 mg PO Q8HR PRN #10 tab 07/23/17 Tamsulosin HCl [Flomax] 0.4 mg PO DAILY #7 cap 07/23/17 Amoxicillin/Potassium Clav 1 each PO Q12HR #20 tab 03/09/18 [Augmentin 875-125 Tablet] Fluticasone Propionate [Flonase 1 - 2 spray EA NOSTRIL DAILY 5 03/09/18 Allergy Relief] Days ml Allergies Allergy/AdvReac Type Severity Reaction Status Date / Time No Known Allergies Allergy Verified 03/09/18 17:09 Review of Systems ROS Statement: Those systems with pertinent positive or pertinent negative responses have been documented in the HPI. ROS Other: All systems not noted in ROS Statement are negative. Past Medical History Past Medical History: No Reported History Additional Past Medical History / Comment(s): kidney stones History of Any Multi-Drug Resistant Organisms: None Reported Past Surgical History: Hernia Repair, Orthopedic Surgery Additional Past Surgical History / Comment(s): right ankle Past Psychological History: PTSD Smoking Status: Never smoker Past Alcohol Use History: None Reported Past Drug Use History: None Reported General Exam - General Exam Comments Initial Comments: General: The patient is awake and alert, in no distress, and does not appear acutely ill. Eye: There is normal conjunctiva bilaterally. No signs of icterus. Ears, nose, mouth and throat: There are moist mucous membranes and no oral lesions. Tender over the frontal and left maxillary sinus. Mild redness to the posterior pharynx. No exudate. Uvula midline. Neck: The neck is supple. Cardiovascular: There is a regular rate and rhythm. No murmur, rub or gallop is appreciated. Respiratory: Lungs are clear to auscultation, respirations are non-labored, breath sounds are equal. No wheezes, stridor, rales, or rhonchi. Musculoskeletal: Normal ROM, no tenderness. Neurological: A&O x 3. CN II-XII intact, There are no obvious motor or sensory deficits. Coordination appears grossly intact. Speech is normal. Skin: Skin is warm and dry and no rashes or lesions are noted. Psychiatric: Cooperative, appropriate mood & affect, normal judgment. Limitations: no limitations Course Vital Signs 03/09/18 17:07 Temperature 99.3 F Pulse Rate 81 Respiratory 16 Rate Blood Pressure 142/90 O2 Sat by Pulse 98 Oximetry Medical Decision Making - Medical Decision Making Patient's vitals are stable. Patient will be treated for sinus infection. He is advised was likely a viral illness. Will be given Flonase advised over-the- counter medication of Sudafed. Patient will be given a prescription of Augmentin. Advised that if symptoms are not improving over the next 2 days or if they increase worsen use antibiotic. Advised return for any other concerns. Disposition Clinical Impression: Acute sinusitis Disposition: HOME SELF-CARE Condition: Good Instructions: Sinusitis (ED) Additional Instructions: Please use medication as discussed. Please follow-up with family doctor in the next 2 days of symptoms have not improved. Please return to emergency room if the symptoms increase or worsen or for any other concerns. Prescriptions: Amoxicillin/Potassium Clav [Augmentin 875-125 Tablet] 1 each PO Q12HR #20 tab Fluticasone Propionate [Flonase Allergy Relief] 1 - 2 spray EA NOSTRIL DAILY 5 Days ml Is patient prescribed a controlled substance at d/c from ED?: No Referrals: Nonstaff,Physician [Primary Care Provider] - 1-2 days Time of Disposition: 17:29
== END 2018-03-09 17:39 | disposition home or self-care (01) ==
LOC: EC 16:55
DX: J01.90 Acute sinusitis, unspecified (principal); J02.9 Acute pharyngitis, unspecified; Z79.1 Long term (current) use of non-steroidal anti-inflammatories (NSAID)
CPT/HCPCS: 99283

== ENCOUNTER 2022-03-15 04:41 | Emergency (ER) | payer OTHER ==
[2022-03-15 04:52] VITALS: RESP 18; TEMP 97.9
[2022-03-15] MEDS ORDERED: ACETAMINOPHEN TAB 500 MG TAB PO STA (05:43)
[2022-03-15] MEDS ORDERED: dexAMETHasone 2 MG TAB PO STA (05:43)
[2022-03-15] MEDS ORDERED: KETOROLAC 15 MG/ML 1 ML VIAL IM STA (05:43)
[2022-03-15] MEDS ORDERED: ONDANSETRON 4 MG ODT STARTER PACK 2 TAB BTL PO STA (05:44)
[2022-03-15] MEDS ORDERED: IBUPROFEN 600 MG STARTER PACK 4 TAB BTL PO STA (05:44)
[2022-03-15] MEDS ORDERED: ACET/COD 300 MG/30 MG STARTER PACK 6 TAB BTL PO STA (05:44)
[2022-03-15] MEDS ORDERED: AMOXIC-POT CLAV 875MG STARTER PACK 2 TAB BTL PO STA (05:44)
--- NOTE | 2022-03-15 05:46 | ED ---
ENT HPI - General Chief complaint: Upper Respiratory Infection Stated complaint: Headache Time Seen by Provider: 03/15/22 04:58 Source: patient, RN notes reviewed, old records reviewed Mode of arrival: ambulatory Limitations: no limitations - History of Present Illness Initial comments: This is a 46-year-old male to the emergency department for evaluation patient presents today for evaluation of severe sore throat difficulty swallowing neck pain. No real fever but he does have occasional sweats. Symptoms are for a few days now. No travel history or sick contacts. MD complaint: sore throat -: hour(s) Location: throat Severity: moderate Severity scale (1-10): 6 Quality: stabbing Consistency: constant Improves with: none Worsens with: none Context- Ear: recent illness Associated Symptoms: fever, sore throat - Related Data Home Medications Medication Instructions Recorded Confirmed Naproxen [Naprosyn] 500 mg PO Q12HR 07/30/16 07/30/16 Previous Rx's Medication Instructions Recorded traMADol HCl [Ultram] 50 mg PO Q4H PRN #15 tab 07/30/16 Hydrocodone/Acetaminophen [[place] 1 each PO Q6HR PRN #20 tab 08/22/16 5-325] Ketorolac [Toradol] 10 mg PO Q6HR #20 tab 08/22/16 Ondansetron Odt [Zofran ODT] 4 mg PO Q8HR PRN #20 tab 08/22/16 Tamsulosin [Flomax] 0.4 mg PO DAILY #5 cap 08/22/16 Hydrocodone/Acetaminophen [[place] 1 tab PO Q6HR PRN #12 tab 07/23/17 5-325] Ibuprofen [Motrin] 600 mg PO Q8HR PRN #30 tab 07/23/17 Ondansetron [Zofran ODT] 4 mg PO Q8HR PRN #10 tab 07/23/17 Tamsulosin HCl [Flomax] 0.4 mg PO DAILY #7 cap 07/23/17 Amoxicillin/Potassium Clav 1 each PO Q12HR #20 tab 03/09/18 [Augmentin 875-125 Tablet] Fluticasone Propionate [Flonase 1 - 2 spray EA NOSTRIL DAILY 5 03/09/18 Allergy Relief] Days ml Amoxic-Pot Clav 875-125Mg 1 tab PO Q12HR #20 tablet 03/15/22 [Augmentin 313-994] Allergies Allergy/AdvReac Type Severity Reaction Status Date / Time No Known Allergies Allergy Verified 03/15/22 04:52 Review of Systems ROS Statement: Those systems with pertinent positive or pertinent negative responses have been documented in the HPI. ROS Other: All systems not noted in ROS Statement are negative. Past Medical History Past Medical History: No Reported History Additional Past Medical History / Comment(s): kidney stones History of Any Multi-Drug Resistant Organisms: None Reported Past Surgical History: Hernia Repair, Orthopedic Surgery Additional Past Surgical History / Comment(s): right ankle Past Psychological History: PTSD Smoking Status: Never smoker Past Alcohol Use History: None Reported Past Drug Use History: None Reported General Exam Limitations: no limitations General appearance: alert, in no apparent distress Head exam: Present: atraumatic, normocephalic, normal inspection Eye exam: Present: normal appearance, PERRL, EOMI. Absent: scleral icterus, conjunctival injection, periorbital swelling ENT exam: Present: other (Significant oropharyngeal erythema and edema) Neck exam: Present: normal inspection. Absent: tenderness, meningismus, lymphadenopathy Respiratory exam: Present: normal lung sounds bilaterally. Absent: respiratory distress, wheezes, rales, rhonchi, stridor Cardiovascular Exam: Present: regular rate, normal rhythm, normal heart sounds. Absent: systolic murmur, diastolic murmur, rubs, gallop, clicks GI/Abdominal exam: Present: soft, normal bowel sounds. Absent: distended, tenderness, guarding, rebound, rigid Extremities exam: Present: normal inspection, full ROM, normal capillary refill. Absent: tenderness, pedal edema, joint swelling, calf tenderness Back exam: Present: normal inspection Neurological exam: Present: alert, oriented X3, CN II-XII intact Psychiatric exam: Present: normal affect, normal mood Skin exam: Present: warm, dry, intact, normal color. Absent: rash Course Vital Signs 03/15/22 03/15/22 04:50 06:00 Temperature 97.9 F Pulse Rate 93 78 Respiratory 18 18 Rate Blood Pressure 120/81 134/67 O2 Sat by Pulse 95 99 Oximetry - Reevaluation(s) Reevaluation #1: Records reviewed Patient symptoms improved here in the emergency department Patient informed results and questions answered Medical Decision Making - Medical Decision Making 46 male DF for evaluation of headache and sore throat. Patient does have strep throat place on antibiotics and can be discharged home Disposition Clinical Impression: Strep throat, Pharyngitis Disposition: HOME SELF-CARE Condition: Good Instructions (If sedation given, give patient instructions): Pharyngitis (ED), Strep Throat (ED) Prescriptions: Amoxic-Pot Clav 875-125Mg [Augmentin 875-125] 1 tab PO Q12HR #20 tablet Is patient prescribed a controlled substance at d/c from ED?: No Referrals: Lele Santiago MD [Primary Care Provider] - 1-2 days Time of Disposition: 06:00
[2022-03-15] MEDS: AMOXIC-POT CLAV 875-125MG 1 EACH TAB PO STA ×2 (06:21→06:45)
[2022-03-15 06:56] VITALS: BP 134/67; PULSE 78
== END 2022-03-15 06:32 | disposition home or self-care (01) ==
LOC: EC 04:41
DX: J02.0 Streptococcal pharyngitis (principal)
CPT/HCPCS: 99283; 96372; J8540; J1885; S0119